=== PATIENT | female | born 1980 | race American Indian/Alaskan Native ===

== ENCOUNTER 2018-12-16 23:07 | Emergency (ER) | payer OTHER ==
[2018-12-16 23:35] VITALS: BP 113/83
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
== END 2018-12-17 04:00 | disposition home or self-care (01) ==
LOC: ED 23:07
DX: R51 Headache (principal); M54.2 Cervicalgia; R10.9 Unspecified abdominal pain; M79.602 Pain in left arm; M79.601 Pain in right arm; F17.200 Nicotine dependence, unspecified, uncomplicated; Z79.899 Other long term (current) drug therapy; Z91.018 Allergy to other foods; V89.2XXA Person injured in unspecified motor-vehicle accident, traffic, initial encounter; Y93.89 Activity, other specified; Y92.488 Other paved roadways as the place of occurrence of the external cause; Y99.8 Other external cause status
CPT/HCPCS: 99282

== ENCOUNTER 2020-07-12 08:15 | Emergency (ER) | payer OTHER ==
--- NOTE | 2020-07-12 09:08 | XRay Report ---
Left knee 3 views INDICATION: Knee pain FINDINGS: Alignment appears normal. No acute fracture or dislocation. No soft tissue abnormality. Signer Name: Steve Wilson MD Signed: 07/12/2020 9:03 AM Workstation Name: [id number]
[2020-07-12 09:13] VITALS: BP 110/81
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
== END 2020-07-12 09:39 | disposition home or self-care (01) ==
LOC: ED 08:15
DX: S86.912A Strain of unspecified muscle(s) and tendon(s) at lower leg level, left leg, initial encounter (principal); F17.200 Nicotine dependence, unspecified, uncomplicated; Z79.899 Other long term (current) drug therapy; V49.49XA Driver injured in collision with other motor vehicles in traffic accident, initial encounter; Y93.89 Activity, other specified; Y92.488 Other paved roadways as the place of occurrence of the external cause; Y99.8 Other external cause status
CPT/HCPCS: 99283

== ENCOUNTER 2021-05-07 08:21 | Emergency (ER) | payer OTHER, SELFPAY ==
[2021-05-07 09:35] VITALS: BP 107/73
[2021-05-07] MEDS ORDERED: ONDANSETRON 4 MG/2 ML INJ IV ONE ×2 (10:53→15:36)
[2021-05-07] MEDS ORDERED: SODIUM CHLORIDE 0.9% 1000 ML 1,000 ML IV ONE (10:53)
[2021-05-07 12:07] LABS: Hemoglobin 10.4 gm/dl (10.1-14.3); Mean Corpuscular HGB Conc 31 % (30-34); Mean Corpuscular Volume 95 fl (79-97); Platelet Count 193 K/mm3 (140-440); Red Blood Count 3.59 M/mm3 (3.65-5.03); Red Cell Distribution Width 18.2 % (13.2-15.2)
[2021-05-07 12:19] LABS: Alanine Aminotransferase 30 units/L (7-56); Albumin 4.3 g/dL (3.9-5); Blood Urea Nitrogen 9 mg/dL (7-17); Calcium 8.7 mg/dL (8.4-10.2); Hemolysis Index 67
[2021-05-07 12:20] LABS: BUN/Creatinine Ratio 15
--- NOTE | 2021-05-07 12:33 | Emergency Department Report ---
ED General Adult HPI - General Chief complaint: Weakness Stated complaint: FEVER,VOMIT Time Seen by Provider: 05/07/21 10:10 Source: patient Mode of arrival: Ambulatory Limitations: No Limitations - History of Present Illness Initial comments: 40-year-old -[place] female presents to the emergency room complaining of nausea and vomiting for 4 days. She denies any fever but admits to body aches sore throat. She does not have any nasal congestion no runny nose no cough and no shortness of breath.. Patient is unvaccinated for Covid and flu. She denies any past medical history currently takes no meds on a daily basis. Onset/Timin -: days(s) Severity scale (0 -10): 6 Quality: aching Consistency: constant Improves with: none Worsens with: none Associated Symptoms: loss of appetite, nausea/vomiting, weakness. denies: cough, fever/chills, headaches, shortness of breath Treatments Prior to Arrival: none - Related Data Home Medications Medication Instructions Recorded Confirmed Last Taken Iron Carb,Gl/FA/B12/C/Docusate 1 tab PO DAILY 02/10/14 02/10/14 02/09/14 15:00 [Ferralet 90 Tablet] 1 tab Valacyclovir HCl [Valacyclovir] 1 tab PO BID 02/10/14 02/10/14 02/04/14 21:00 Previous Rx's Medication Instructions Recorded Last Taken Type Vits96/Iron Fum/Folic 1 tab PO DAILY #30 tablet 02/11/14 Unknown Rx [ Tablet] oxyCODONE /ACETAMINOPHEN [Percocet 1 tab PO Q6HR PRN #30 tablet 02/11/14 Unknown Rx 5/325] Ketorolac [Toradol] 10 mg PO Q6H PRN #15 tablet 12/17/18 Unknown Rx methOCARBAMOL [Robaxin TAB] 750 mg PO Q8H PRN #14 tablet 12/17/18 Unknown Rx Cyclobenzaprine [Flexeril] 10 mg PO QHS PRN #10 tablet 07/12/20 Unknown Rx Naproxen 500 mg PO Q12H PRN #12 tablet 07/12/20 Unknown Rx Ibuprofen [Motrin 600 MG tab] 600 mg PO Q6H PRN #30 tablet 05/07/21 Unknown Rx Ondansetron [Zofran Odt] 4 mg PO Q8HR PRN #6 tab.rapdis 05/07/21 Unknown Rx Allergies Allergy/AdvReac Type Severity Reaction Status Date / Time banana [Banana] AdvReac Unknown Verified 02/10/14 02:51 ED Review of Systems ROS: Stated complaint: FEVER,VOMIT Other details as noted in HPI Comment: All other systems reviewed and negative Cardiovascular: denies: chest pain, palpitations Gastrointestinal: denies: abdominal pain, diarrhea Genitourinary: denies: urgency, dysuria Musculoskeletal: myalgia Skin: denies: rash, lesions Neurological: denies: headache, weakness, paresthesias ED Past Medical Hx - Past Medical History Previous Medical History?: No Hx Hypertension: No Hx Congestive Heart Failure: No Hx Diabetes: No Hx Deep Vein Thrombosis: No Hx Renal Disease: No Hx Sickle Cell Disease: No Hx Seizures: No Hx Asthma: No Hx COPD: No - Surgical History Past Surgical History?: No - Social History Smoking Status: Current Every Day Smoker Substance Use Type: None - Medications Home Medications: Home Medications Medication Instructions Recorded Confirmed Last Taken Type Iron Carb,Gl/FA/B12/C/Docusate 1 tab PO DAILY 02/10/14 02/10/14 02/09/14 15:00 History [Ferralet 90 Tablet] 1 tab Valacyclovir HCl [Valacyclovir] 1 tab PO BID 02/10/14 02/10/14 02/04/14 21:00 History Vits96/Iron Fum/Folic 1 tab PO DAILY #30 tablet 02/11/14 Unknown Rx [ Tablet] oxyCODONE /ACETAMINOPHEN [Percocet 1 tab PO Q6HR PRN #30 tablet 02/11/14 Unknown Rx 5/325] Ketorolac [Toradol] 10 mg PO Q6H PRN #15 tablet 12/17/18 Unknown Rx methOCARBAMOL [Robaxin TAB] 750 mg PO Q8H PRN #14 tablet 12/17/18 Unknown Rx Cyclobenzaprine [Flexeril] 10 mg PO QHS PRN #10 tablet 07/12/20 Unknown Rx Naproxen 500 mg PO Q12H PRN #12 tablet 07/12/20 Unknown Rx Ibuprofen [Motrin 600 MG tab] 600 mg PO Q6H PRN #30 tablet 05/07/21 Unknown Rx Ondansetron [Zofran Odt] 4 mg PO Q8HR PRN #6 tab.rapdis 05/07/21 Unknown Rx ED Physical Exam - General Limitations: No Limitations General appearance: alert, in no apparent distress - Head Head exam: Present: atraumatic, normocephalic - Eye Eye exam: Present: normal appearance - ENT ENT exam: Present: mucous membranes dry - Neck Neck exam: Present: normal inspection, full ROM - Respiratory Respiratory exam: Present: normal lung sounds bilaterally. Absent: respiratory distress, accessory muscle use - Cardiovascular Cardiovascular Exam: Present: regular rate, normal rhythm - GI/Abdominal GI/Abdominal exam: Present: soft, normal bowel sounds. Absent: distended, tenderness, guarding - Extremities Exam Extremities exam: Present: normal inspection, full ROM - Back Exam Back exam: Present: normal inspection - Neurological Exam Neurological exam: Present: alert, oriented X3, normal gait - Psychiatric Psychiatric exam: Present: normal affect, normal mood - Skin Skin exam: Present: warm, dry, intact, normal color. Absent: rash ED Course Vital Signs 05/07/21 09:32 Temperature 98.5 F Pulse Rate 81 Respiratory 16 Rate Blood Pressure 107/73 [Left] O2 Sat by Pulse 100 Oximetry ED Medical Decision Making - Lab Data Result diagrams: 05/07/21 14:10 05/07/21 10:53 - Medical Decision Making 18-year-old -[place] female with a past medical history of asthma presents to the emergency room reporting she had a headache and dizziness yesterday she complains of nausea today, scratchy throat. She states that symptoms started yesterday she took ibuprofen at 9 AM Tylenol at 7 AM. She is not vaccinated for Covid or flu. She states she is used her inhaler. She denies any fever chills. States chest pain is worse when she coughs. Nothing makes it better. Basic labs have been ordered IV with normal saline, IV Zofran Patient reports she feels much better and is ready to be discharged. Patient be discharged home on Zofran and ibuprofen. Encouraged to go get Covid testing and consider Covid vaccination. Critical care attestation.: If time is entered above; I have spent that time in minutes in the direct care of this critically ill patient, excluding procedure time. ED Disposition Clinical Impression: Viral syndrome, Suspected COVID-19 virus infection Disposition: HOME / SELF CARE / HOMELESS Is pt being admited?: No Does the pt Need Aspirin: No Condition: Stable Instructions: Viral Respiratory Infection, [id number], COVID-19 Frequently Asked Questions, COVID-19: How to Protect Yourself and Others - CDC, Prevent the Spread of COVID-19 if You Are Sick - [facility] Additional Instructions: Your symptoms appear most consistent with a nonspecific viral syndrome. However, given this current pandemic, COVID-19 is in the differential of possibilities. Despite your previous negative COVID-19 test, I do recommend repeat outpatient Covid 19 testing. In the meantime, isolate/quarantine y ourself and stay away from anyone who is elderly, immunocompromised or chronically ill. You can use ibuprofen every 6-8 hours and Tylenol every 4-8 hours, using the dosing on the back of the bottle, as needed for any fever or body aches. Return to the emergency department with any worsening of your symptoms, development of chest pain or shortness of breath, or with any acute distress. Prescriptions: Ibuprofen [Motrin 600 MG tab] 600 mg PO Q6H PRN #30 tablet PRN Reason: Mild Pain Unrelieved By Apap Ondansetron [Zofran Odt] 4 mg PO Q8HR PRN #6 tab.rapdis PRN Reason: Nausea And Vomiting Referrals: PRIMARY CARE, [Primary Care Provider] - 3-5 Days [facility] [Provider Group] - 3-5 Days Time of Disposition: 17:17
[2021-05-07 12:49] LABS: Bilirubin,Urine NEG (Negative); Blood,Urine NEG (Negative); Color,Urine Yellow (Yellow); Mucus,Urine FEW /HPF; RBC,Urine < 1.0 /HPF (0.0-6.0); Urobilinogen,Urine < 2.0 mg/dL (<2.0)
[2021-05-07 14:32] LABS: HCG Qualitative,Urine Negative (Negative)
[2021-05-07 15:34] LABS: Hematocrit 40.8 % (30.3-42.9); Hemoglobin 12.8 gm/dl (10.1-14.3); Mean Corpuscular HGB Conc 32 % (30-34); Mean Corpuscular Volume 92 fl (79-97); Platelet Count 244 K/mm3 (140-440); Red Blood Count 4.43 M/mm3 (3.65-5.03); Red Cell Distribution Width 18.2 % (13.2-15.2)
[2021-05-07] MEDS ORDERED: DICYCLOMINE 20 MG TAB PO ONE (15:36)
[2021-05-07 17:00] LABS: Total Cells Counted 100
[2021-05-07 17:01] LABS: Platelet Estimate Consistent w Auto
== END 2021-05-07 17:54 | disposition home or self-care (01) ==
LOC: ED 08:21
DX: B34.9 Viral infection, unspecified (principal); Z20.822 Contact with and (suspected) exposure to COVID-19; F17.200 Nicotine dependence, unspecified, uncomplicated; Z91.018 Allergy to other foods; Z79.899 Other long term (current) drug therapy
CPT/HCPCS: 36415; 80053; 81001; 81025; 85007; 85025; 85027; 96361; 96374; 96376; 99283; J2405; J7030; Q0162